=== PATIENT | female | born 1955 | race Caucasian/White ===

== ENCOUNTER 2016-09-25 10:32 | Emergency (ER) | payer MEDICAID ==
[2016-09-25 10:50] LABS: BASOPHIL# 0.1 X 10^3uL (0.0-0.1); BASOPHILS 0.7 % (0.0-2.0); EOSINOPHILS# 0.1 X 10^3uL (0.0-0.4); WHITE BLOOD COUNT 7.2 X 10^3uL (3.9-10.7)
[2016-09-25 10:59] LABS: BLOOD UREA NITROGEN 13 mg/dL (7-17); CALCIUM 8.9 mg/dL (8.4-10.2); CHLORIDE 102 mmol/L (98-107); CREATININE 0.8 mg/dL (0.5-1.0); EST GLOMERULAR FILTRATION RATE > 60 mL/min; GLUCOSE 119 mg/dL (70-100); SODIUM 139 mmol/L (137-145)
[2016-09-25 11:09] LABS: EOSINOPHILS 1.2 % (0.0-6.0); MEAN CELL VOLUME 91.4 fL (80.0-100.0); MEAN CORPUS. HGB CONCENTRATION 35.9 g/dL (32.0-36.0); MEAN CORPUSCULAR HEMOGLOBIN 32.8 pg (29.0-35.0); MEAN PLATELET VOLUME 9.2 fL (7.4-10.4); MONOCYTES 5.8 % (2.0-10.0); MONOCYTES# 0.4 X 10^3uL (0.2-1.0); NEUTROPHILS 64.3 % (54.0-75.0); NEUTROPHILS# 4.6 X 10^3uL (2.6-6.7); PLATELET COUNT 233 X 10^3uL (130-440); RED BLOOD COUNT 4.72 X 10^6uL (4.20-6.10); RED CELL DISTRIBUTION WIDTH 12.1 % (11.5-14.5)
[2016-09-25 11:12] LABS: HEMATOCRIT 42.3 % (36.0-48.0); HEMOGLOBIN 13.7 g/dL (12.0-16.0)
[2016-09-25 11:13] LABS: TROPONIN I < 0.012 ng/mL (0.00-0.034)
[2016-09-25] MEDS ORDERED: KETOROLAC TROMETHAMINE 30 MG/ML VIAL ONE (11:42)
--- NOTE | 2016-09-25 12:24 | RADIOLOGY REPORT ---
Two views of the chest are compared with prior films dated 06/03/2015. The heart , vessels and lungs are stable and unremarkable. No infiltrate, fluid or pneumothorax is seen. IMPRESSION: Stable unremarkable limited single portable view of the chest. MTDD
[2016-09-25] MEDS ORDERED: predniSONE 10 MG TABLET PO ONE ×2 (12:34→12:38)
--- NOTE | 2016-09-25 12:36 | ER PHYSICIAN DOCUMENTATION ---
Physician Documentation [facility], [place] Name:Misa Martins Age:61 yrs Sex:Female :1955 Arrival Date:09/25/2016 Time:10:32 BedTrauma-A Private MD: Greg James Disposition: 09/25/16 12:06 Discharged to Home/Self Care. Impression: Costochondritis. - Condition is Good. - Discharge Instructions: CHEST WALL PAIN, Costochondritis. - Prescriptions for Prednisone 20 mg Oral - take 2 tablet by ORAL route once daily for 4 days; 8 tablet. - Medical Reconciliation form form. - Follow up: Private Physician; When: 4- 6 days; Reason: Continuance of care. - Problem is new. - Symptoms have improved. HPI: 09/25 13:04 This 61 yrs old Female presents to ER via Private Vehicle with complaints of jm Chest Pain. 13:04 The patient or guardian reports chest pain that is located primarily in the substernal jm area. Onset: today. The pain radiates to back. There has been no movement of pain. Associated signs and symptoms: Pertinent negatives: cough, diaphoresis, dizziness, palpitations, shortness of breath. The chest pain is described as sharp. Duration: The patient or guardian reports multiple episodes. Modifying factors: the symptoms are aggravated by deep breath, movement, twisting torso. Severity of pain: At its worst the pain was moderate. The patient has not experienced similar symptoms in the past. The patient has not recently seen a physician. Pt opened a can of old dog food from her fridge and it was very moldy and a puff of mold shot into her face and she inhaled it. Since then she's had pain w inspiration. This happeneed this AM. She is worried about infection. . Historical: - Home Meds: 1. OxyContin Oral 2. CoQ-10 oral 3. B Complex oral 4. Lisinopril Oral 5. Levofloxacin Oral 6. Aspirin Oral 7. Vitamin D Oral 8. prevastatin - PMHx: TIA; Back pain; 1 episode of kidney failure; - PSHx: Cholecysectomy; CARPAL TUNNEL REPAIR; - Tetanus: < 10 years. - Ebola Screening: : Patient negative for fever greater than or equal to 101.5 degrees Fahrenheit, and additional compatible Ebola Virus Disease symptoms. Patient denies exposure to infectious person. Patient denies travel to an Ebola-affected area in the 21 days before illness onset. No symptoms or risks identified at this time. . - Immunization history: Pneumococcal vaccine status is unknown, Flu Vaccine None. - Social history: Smoking status: Patient states was never smoker of tobacco. ROS: 13:04 Constitutional: Negative for fatigue, fever, malaise. jm 13:04 Cardiovascular: Positive for chest pain. 13:04 Respiratory: Positive for pleurisy. 13:04 Back: Positive for pain with movement, radiated pain. 13:04 MS/extremity: Negative for swelling, tenderness. 13:04 MS/extremity: Negative for 13:04 Skin: Negative for swelling. 13:04 Psych: Negative for anxiety, depression, drug dependence, alcohol dependence. 13:04 All other systems are negative. Exam: 13:04 Constitutional: The patient appears in no acute distress, alert, awake, comfortable. jm 13:04 Eyes: Periorbital structures: appear normal, Conjunctiva: normal. 13:04 ENT: Mouth: is normal, Voice: is normal. 13:04 Chest/axilla: Palpation: tenderness, that is mild, of the anterior aspect of right upper chest, anterior aspect of left upper chest and mid-sternal area, that partially reproduces the patient's complaints. 13:04 Cardiovascular: Rate: normal, Rhythm: regular, Pulses: no pulse deficits are appreciated. 13:04 Respiratory: Respirations: normal, Breath sounds: are normal. 13:04 Back: pain, is absent, CVA tenderness, is absent, vertebral tenderness, is not appreciated. 13:04 Musculoskeletal/extremity: Weight bearing: able to fully bear weight, DVT Exam: No signs of deep vein thrombosis. Calves: are non-tender, have equal circumference. 13:04 Skin: Appearance: Color: pink, no rash present. 13:04 Neuro: Mentation: is normal, Memory: is normal. 13:04 Psych: Behavior/mood is pleasant, cooperative, Affect is calm. Vital Signs: 10:25 BP 147 / 68; Pulse 72; Resp 12; Pulse Ox 97% on R/A; Weight 92.08 kg; Height 5 ft. 5 ke in. (165.10 cm); Pain 6/10; 10:42 Pulse 74 MON; Resp 16; Pulse Ox 97% ; ke 10:45 BP 148 / 75 (auto/); ke 10:57 Pulse 74 MON; Resp 17; Pulse Ox 97% ; ke 11:00 BP 146 / 78 (auto/); ke 11:12 Pulse 77 MON; Resp 20; Pulse Ox 97% ; ke 11:16 BP 145 / 76 (auto/); ke 11:27 Pulse 68 MON; Resp 20; Pulse Ox 97% ; ke 11:30 BP 145 / 72 (auto/); ke 11:45 BP 147 / 75 (auto/); ke 11:47 Pulse 62 MON; Resp 15; Pulse Ox 96% ; ke 12:00 BP 150 / 78 (auto/); ke 12:02 Pulse 71 MON; Resp 22; Pulse Ox 96% ; Pain 4/10; ke 12:15 BP 130 / 80 (auto/); ke 12:17 Pulse 62 MON; Resp 18; Pulse Ox 96% ; ke 10:25 Body Mass Index 33.78 (92.08 kg, 165.10 cm) ke MDM: 10:42 Patient medically screened. 13:09 Differential diagnosis: acute myocardial infarction, chest wall pain, costochondritis, jm pleurisy, pneumonia. The patient was not given aspirin in the Emergency Department. Data reviewed: vital signs, nurses notes, old medical records, lab test result(s), EKG, radiologic studies, and as a result, I will discharge patient. Test interpretation: by ED physician or midlevel provider: plain radiologic studies, ECG. Counseling: I had a detailed discussion with the patient and/or guardian regarding: the historical points, exam findings, and any diagnostic results supporting the discharge/admit diagnosis, lab results, radiology results, the need for outpatient follow up, with the patient's primary care provider. ECG:. Medication response: The patient's symptoms have improved, 09/25 11:13 Order name: CBC AUTO DIF, MDIF/RMOR IF IND; Complete Time: 11:18 EDMS 09/25 11:13 Order name: BASIC METABOLIC PANEL; Complete Time: 11:18 EDMS 09/25 11:13 Order name: BNP,NT-PRO; Complete Time: 11:18 EDMS 09/25 11:13 Order name: TROPONIN I; Complete Time: 11:18 EDMS 09/25 10:54 Order name: CHEST; S[place] [id number] [facility] 09/25 12:52 Order name: CHEST; [place] [id number] [facility] 09/25 10:43 Order name: 12-lead EKG; Complete Time: : 09/25 10:43 Order name: Continuous Cardiac Monitoring; Complete Time: : 09/25 10:43 Order name: I & O; Complete Time: : 09/25 10:43 Order name: Iv Saline Lock; Complete Time: : 09/25 10:43 Order name: Pulse Ox Continuous; Complete Time: : EC:09 Rhythm is regular. QRS [place] is Normal. QRS interval is normal. QT interval is normal. T jm waves are Normal. No ST changes noted. Dispensed Medications: 11:36 Drug: Toradol 30 mg; Route: IVP; Site: left antecubital; ke 11:50 Follow up: Response: Pain is decreased ke 12:20 Drug: predniSONE 40 mg; Route: PO; ke 12:35 Follow up: Response: Medication administered at discharge. ke Signatures: Greg Lima MD MD jm Evens, Kerry, RN RN
--- NOTE | 2016-09-25 12:36 | ER NURSING DOCUMENTATION ---
Nurse's Notes [facility] Name:Misa Martins Age:61 yrs Sex:Female :1955 Arrival Date:09/25/2016 Time:10:32 BedTrauma-A Private MD: Diagnosis:Costochondritis Presentation: 09/25 10:41 Acuity: SADIA 2 ke 10:47 Presenting complaint: Patient states: Mid-sternal chest pain that started on Thursday ke after opening a can of spoiled dog food and a "cloud" of mold puffed out and was inhaled. Since then her pain is worsening and now gets really bad when she moves around and is spasmodic in nature. No shortness of breath. Transition of care: Home. AIR CAT ACTIVATION no other Don't suspect cardiac cause. Risk considerations: negative evaluation for symptoms or risks of deep vein thrombosis or pulmonary embolism. Notified ED Physician of patient's arrival and CC Clarence Benton notified. 10:47 Method Of Arrival: Private Vehicle Triage Assessment: 10:56 General: Appears uncomfortable, Behavior is anxious, cooperative. Pain: Complains of ke pain in anterior aspect of right upper chest, anterior aspect of left upper chest and mid-sternal area Pain currently is 6 out of 10 on a pain scale. At worst was 10 out of 10 on a pain scale. Quality of pain is described as sharp, shooting, stabbing, Pain began 2-3 days ago. EENT: Oral mucosa is moist. Neuro: Level of Consciousness is awake, alert, Oriented to person, place, time, event. Cardiovascular: Capillary refill < 3 seconds Heart tones S1 S2 present. Respiratory: Airway is patent Trachea midline Breath sounds are clear bilaterally. GI: Abdomen is non- distended Bowel sounds present X 4 quads. Abd is soft and non tender X 4 quads. Abd is soft. : No deficits noted. Derm: Skin is healthy with good turgor, Skin is dry, Skin is pale, Skin temperature is warm. Musculoskeletal: Circulation, motion, and sensation intact Capillary refill < 3 seconds. Historical: - Home Meds: 1. OxyContin Oral 2. CoQ-10 oral 3. B Complex oral 4. Lisinopril Oral 5. Levofloxacin Oral 6. Aspirin Oral 7. Vitamin D Oral 8. prevastatin - PMHx: TIA; Back pain; 1 episode of kidney failure; - PSHx: Cholecysectomy; CARPAL TUNNEL REPAIR; - Tetanus: < 10 years. - Ebola Screening: : Patient negative for fever greater than or equal to 101.5 degrees Fahrenheit, and additional compatible Ebola Virus Disease symptoms. Patient denies exposure to infectious person. Patient denies travel to an Ebola-affected area in the 21 days before illness onset. No symptoms or risks identified at this time. . - Immunization history: Pneumococcal vaccine status is unknown, Flu Vaccine None. - Social history: Smoking status: Patient states was never smoker of tobacco. Screenin:00 Infectious Disease Risk None. Abuse screen: Denies threats or abuse. Denies injuries ke from another. Nutritional screening: No deficits noted. Assessment: 11:00 See Triage Assessment done by same RN. Pain: Pain does not radiate. ke Vital Signs: 10:25 BP 147 / 68; Pulse 72; Resp 12; Pulse Ox 97% on R/A; Weight 92.08 kg; Height 5 ft. 5 ke in. (165.10 cm); Pain 6/10; 10:42 Pulse 74 MON; Resp 16; Pulse Ox 97% ; ke 10:45 BP 148 / 75 (auto/); ke 10:57 Pulse 74 MON; Resp 17; Pulse Ox 97% ; ke 11:00 BP 146 / 78 (auto/); ke 11:12 Pulse 77 MON; Resp 20; Pulse Ox 97% ; ke 11:16 BP 145 / 76 (auto/); ke 11:27 Pulse 68 MON; Resp 20; Pulse Ox 97% ; ke 11:30 BP 145 / 72 (auto/); ke 11:45 BP 147 / 75 (auto/); ke 11:47 Pulse 62 MON; Resp 15; Pulse Ox 96% ; ke 12:00 BP 150 / 78 (auto/); ke 12:02 Pulse 71 MON; Resp 22; Pulse Ox 96% ; Pain 4/10; ke 12:15 BP 130 / 80 (auto/); ke 12:17 Pulse 62 MON; Resp 18; Pulse Ox 96% ; ke 10:25 Body Mass Index 33.78 (92.08 kg, 165.10 cm) ke ED Course: 10:30 EKG done. Reviewed by Winifred Mazariegos RN. ke 10:34 Patient arrived in ED. cj 10:35 Inserted saline lock: 20 gauge in left antecubital area and blood collected. ke 10:41 Winifred Mazariegos, RN is Primary Nurse. ke 10:42 Greg Lima MD is Attending Physician. harinder 10:42 Triage completed. ke 10:54 CHEST; SINGLE VIEW [id number] In Process Unspecified. EDMS 10:54 Port Xray Completed. tt 11:00 Notified ED Physician of patient's arrival and chief complaint. ke 11:00 Valuables Remains with patient Patient has correct armband on for positive ke identification. Placed in gown. Bed in low position. Side rails up X2. Adult w/ patient. compliance monitor on. Pulse ox on. NIBP on. Cardiac Monitoring On for Nurse Monitoring only. Pulse Ox - RN Monitoring Only NIBP On - RN Monitoring Only. 12:34 Discontinued lock intact, bleeding controlled, pressure dressing applied, No ke redness/swelling at site. Administered Medications: 11:36 Drug: Toradol 30 mg; Route: IVP; Site: left antecubital; ke 11:50 Follow up: Response: Pain is decreased ke 12:20 Drug: predniSONE 40 mg; Route: PO; ke 12:35 Follow up: Response: Medication administered at discharge. ke Outcome: 12:06 Discharge ordered by . harinder 12:35 Patient left the ED. ke Signatures: Dispatcher [employer] EDMS Greg Lima MD MD jm Terriere, Tracy tt Winifred Mazariegos, RN RN Kourtney Tay
== END 2016-09-25 12:36 | disposition home or self-care (01) ==
LOC: ER 10:32
DX: M94.0 Chondrocostal junction syndrome [Tietze] (principal); R09.1 Pleurisy; Z79.899 Other long term (current) drug therapy
CPT/HCPCS: 71010; 80048; 83880; 84484; 85025; 96374; 99284; J1885; J7512